=== PATIENT | female | born 1975 | race Caucasian/White ===

== ENCOUNTER → 2023-11-14 10:13 | Outpatient (REF) | payer BC, SELFPAY | LOC: HWRCS 10:13 | PROVIDERS: ATTENDING PHYSICIAN Family Medicine | DX: R00.2 Palpitations (principal) | CPT/HCPCS: 93306 ==

== ENCOUNTER → 2023-12-03 06:32 | Day surgery (SDC) | payer BC, SELFPAY | LOC: GI 06:32 | PROVIDERS: ATTENDING PHYSICIAN Internal Medicine; FAMILY PHYSICIAN Family Medicine | DX: K64.9 Unspecified hemorrhoids (principal); K51.20 Ulcerative (chronic) proctitis without complications | CPT/HCPCS: 45380; 88305 ==

== ENCOUNTER 2023-12-04 09:10 | Observation (INO) | payer BC, SELFPAY ==
[2023-12-04] VITALS (10 sets, daily range): BP systolic 103–125; BP diastolic 57–76; BMI 23.3
--- NOTE | 2023-12-04 06:47 | ED.GENMED ---
History of Present Illness
General
Chief Complaint: Rectal Bleeding
Source: patient and spouse
Exam Limitations: none
Time Seen by Provider: 12/04/23 06:32
History of Present Illness
History of Present Illness:
48-year-old female history of ulcerative colitis presents with severe GI bleeding status post colonoscopy yesterday. Has had bleeding issues and UC flare since July. Significant inflammation by colonoscopy. Multiple biopsies done. Had some
bleeding last evening that was relatively mild. Severe bleeding x 3 this morning. No significant abdominal pain no fever or chills.
Past History
Past History
ED Past Medical History: Other (ulcerative colitis, Mesalamine suppositories)
ED Past Surgical History: (X2) and Other (Sinus surgery)
Social History
Tobacco: Former smoker
Alcohol: Occasional
Drug: None
Personal:
Living: with family
Employment: Employed (self employed)
Review of Systems
Review of Systems
All Other Systems: Not applicable
Constitutional: Denies fever
ABD/GI: Denies abdominal pain
Phy Exam
Physical Exam
Physical Exam:
GENERAL: Alert and oriented in no apparent distress, but very anxious
EYE: Orbits normal.
NECK: Supple
CARDIAC: Regular rate and rhythm without any obvious murmurs.
LUNGS: Clear breath sounds,normal
ABDOMEN: Soft, bowel sounds present. No distention. Mild suprapubic tenderness. No rebound or guarding no mass or hernia
NEUROLOGICAL: Alert and oriented , grossly non-focal
SKIN: Warm and dry, no rash or lesion, no discoloration, skin intact.
MUSCULOSKELETAL: No edema,no deformity.Good color
PSYCH: Normal and appropriate interaction.
Course
Orders/Labs/Results
Orders:
Orders
12/04/23 06:32
Cardiac Monitoring- Treatment ONCE
IV Insert/Care/Rem.- Treatment PRN
12/04/23 06:41
Type+Screen Urgent
Basic Metabolic Panel Urgent
Beta Hcg Serum Qualitative Screen [HCG, Serum Qualitative Screen] Urgent
Complete Blood Count/With Diff Urgent
12/04/23 06:43
CT Abd/pelvis Angio W/wo Iv Urgent
Comment:
Reason For Exam: Severe lower GI bleed. Colonoscopy yesterday.
Test Result ONCE
12/04/23 07:45
GASTROINTESTINAL CONSULT Routine
Consulting Provider: Fina Jaime
Was physician already notified: Yes
Reason for consult: GIB
12/04/23 08:00
Mesalamine Delayed Release [Asacol, Delzicol Dr] 1,200 mg PO QID
12/04/23 08:05
Admit/Transfer Patient As Directed
Co-Sign Provider:
Level of Care: Observation services
Assign to:: Medical/Surgical
Physician / Group: hospitalist
Diagnosis: GIB
PRN Pain Medication Management As Directed
May give lesser potent ordered pain med per pt: Yes
preference::
Protocol:: Medication orders for pain may be administered in a
manner that supports deferring to patient preference
when the pt is:
- Requesting an ordered lesser potent pain medication.
Least to most potent pain medications are defined
as: acetaminophen < NSAID < tramadol < opioids
(morphine, oxycodone, hydromorphone).
- Requesting a lesser dose of the same medication IF
ORDERED.
- Requesting a less intrusive route of administration
if both routes are prescribed by the provider (PO <
IV).
12/04/23 08:06
Code Status As Directed
Resuscitation Status: Full Code
12/04/23 22:00
Hydrocortisone Enema [Colocort/Cortenema] 60 ml RECTAL HS
Abnormal Lab Results
12/04/23
06:41
Hct 36.4 L %
(37.0-47.0)
12/04/23 06:41
12/04/23 06:41
Vital Signs
Initial and Last Documented VS:
Initial Vital Signs
Temp Pulse Resp BP Pulse Ox
98.2 F 72 20 116/58 100
12/04/23 06:25 12/04/23 06:25 12/04/23 06:25 12/04/23 06:25 12/04/23 06:25
Last Documented Vital Signs
Temp Pulse Resp BP Pulse Ox
98.2 F 76 12 103/59 98
12/04/23 06:25 12/04/23 08:31 12/04/23 08:31 12/04/23 07:30 12/04/23 07:45
MDM/Problems Addressed
Differential Diagnosis Includes:
Patient describing significant lower GI bleed despite stable vital signs and good perfusion. Typed and screened. Consent signed. CT angio. GI contacted immediately.
*Radiology
Radiology exam reviewed: radiology read reviewed (Proctitis. Internal hemorrhoids. No active severe bleeding)
*Pulse Oximetry
Patient hypoxic: no
*Stewardess Supervisor Interpretation
Rate: normal
Interpretation: normal
Heart Rate: 70
Rhythm: sinus
*Critical Care Note
Total Time (30-74mins, 75-104mins- exclusive of procedures): 20
Data Reviewed
Review of Other/Old Records Reveals: Labs, Records and Operative Reports
Update Note
Update Note:
0730... Patient has remained stable. Bleeding has improved. Vital signs stable. Hemoglobin stable. Await CT angiography. GI and hospitalist notified
ED Attending Note
-
Portions of this chart may have been created with voice recognition software.� Occasional wrong word or��sound alike� substitutions may have occurred due to the inherent limitations of voice recognition software.
Discharge Plan
Departure
Patient Disposition: Admit
Date of Disposition: 12/04/23
Time of Disposition: 07:25
Presentation/result/management discussed w/ accepting MD/DO: Gastroenterology
Discharge Problem:
Lower GI bleed, Ulcerative colitis
Prescriptions:
No Action
mesalamine 1.2 gram Tablet,Delayed Release (Dr/Ec)
4.8 g PO DAILY
hydrocortisone 100 mg/60 mL Enema
100 mg MS BID
Patient Comments:
12/04/23: to take twice daily for 1 week, then nightly for 4 weeks
Interventions
Interventions:
*Risk Screen - Suicide Last Done: 12/04/23 06:40
*Neglect/Abuse Screening Last Done: 12/04/23 06:40
ED- Fall Risk Assessment Last Done: 12/04/23 06:40
*ED COVID-19 Vaccine History Last Done: 12/04/23 06:40
XL-Rqkfiq-Vsrwnnzjzy Assessment Last Done: 12/04/23 06:40
ED- Cardiac Assessment Last Done: 12/04/23 06:40
ED- Pulmonary Assessment Last Done: 12/04/23 06:40
Discharge Date and Time
Print Language: PORTUGUESE
[2023-12-04 06:59] LABS: % Basophils 0.6 % (0-2); % Eosinophils 2.4 % (0-6); % Immature Granulocytes 0.2 % (0-0.5); % Lymphocytes 36.8 % (20.5-51.1); Absolute Eosinophils 0.1 10^3/uL (0-0.7); Absolute Monocytes 0.5 10^3/uL (0.1-0.6); Absolute Neutrophils 2.8 10^3/uL (1.4-6.5); Hematocrit 36.4 % (37.0-47.0); Hemoglobin 12.6 g/dL (12.0-16.0); Mean Corp Hgb Conc. 34.6 g/dL (33.0-37.0); Mean Corpuscular Hgb 29.7 pg (27.0-31.0); Mean Corpuscular Volume 85.8 fL (81.0-99.0); Mean Platelet Volume 9.5 fL (7.4-10.4); Nucleated Red Blood Cells % 0 %; Platelet Count 214 10^3/uL (130-400); Red Blood Cell Count 4.24 10^6/uL (4.20-5.40); Red Cell Dist. Width 13.2 % (11.5-14.5); White Blood Cell Count 5.4 10^3/uL (4.8-10.8)
[2023-12-04 07:23] LABS: HCG, Serum Qualitative Screen Negative
[2023-12-04 07:24] LABS: Blood Urea Nitrogen 11 mg/dl (7-17); Calcium 9.7 mg/dl (8.4-10.2); Carbon Dioxide 22 mmol/L (22-30); Chloride 107 mmol/L (98-107); Estimated Creatinine Clearance 79 ml/min; Glucose 98 mg/dl (70-99); Sodium 136 mmol/L (135-145); eGFR > 60.00
--- NOTE | 2023-12-04 08:08 | HPS.HSE ---
Family Physician
-
Family Physician:
Chief Complaint
-
GIB
History of Present Illness
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 Hemodynamically stable. Had 3 bloody BM in AM at home, but bleeding subsided in the hospital.
Abdomen non-tender and not distended. No significant drop in Hbg noted on admission compared with previous baseline between -
Medical History
Past Medical History
Past Medical History: Reports Other
Additional Past Medical History:
See HPI
Past Surgical History: Reports None
Social History
Tobacco: Non-smoker
Alcohol: Occasional
Drug: None
Family History
Family History: Not pertinent
Allergies / Home Medications
Allergies reflects when Allergies were last updated in [employer].
Home Medications with original date entered in [employer]
Allergy/Medication List:
Allergies
Allergy/AdvReac Type Severity Reaction Status Date / Time
Penicillins Allergy Unknown Verified 12/04/23 06:25
Mesalamine 1.2g QID
Hydrocortisone enema nightly
Review of Systems
-
History Source: Patient
A 12 point ROS was completed and negative except as noted: Yes
Physical Exam
Vital Signs
Vital Signs
Temp Pulse Resp BP Pulse Ox
98.2 F 66 14 107/59 100
12/04/23 06:25 12/04/23 07:17 12/04/23 07:17 12/04/23 07:00 12/04/23 07:17
Physical Exam
General: No Apparent Distress
HEENT: NormoCephalic
Respiratory: Clear; No Wheezes, Rales or Rhonchi
Cardiac: S1/S2 and Regular Rhythm
GI: Soft, Non Tender, Non Distended and Normal Bowel Sounds
Musculoskeletal: Clubbing, No Clubbing, No Cyanosis and No Edema
Skin: Warm
Neuro: Awake, Alert, Oriented and AO x 3
Psych: Calm
Laboratory Results
-
12/04/23 06:41
12/04/23 06:41
Data Reviewed
-
Lab Data: Labs Reviewed by me
Impression/Plan
-
A/P:
#Acute blood loss anemia 2/2 GIB 2/2 UC
two large bore IV, serial H&H, transfuse if significant drop >2.0 or <8.0, consent signed in ED
NPO pending GI, start d5NS
Cont Mesalamine PO and Hydrocortisone enema
avoid anticoagulation and antiplatelets, avoid NSAIDs
CT abd pending, however with benign abdomen highly unlikely perforation
DVT ppx SCDs
FUll code
I have spent at least 57min admitting the patient
--- NOTE | 2023-12-04 09:14 | CON.GI ---
Addendum entered and electronically signed by Fina Jaime MD 12/04/23 16:38:
I saw and examined the patient.
The ROUTE DELIVERY DRIVER or PA's note was reviewed and I agree with the note.
Comment: 48-year-old female with history of ulcerative proctitis presenting with significant bleeding from the rectum this a.m. She was diagnosed with ulcerative proctitis back in 2019, was on Canasa suppositories which she was taking couple of
times a week, back in June, she started having some urgency with bowel movements with mucus and blood in diarrhea, symptoms got worse in October, stool studies negative for C. difficile but elevated fecal calprotectin. She had colonoscopy performed
12/03/2023, Painting grade 2 inflammation found from anus to rectum and also in the cecum, rest of the colon appeared normal. Biopsies were taken with a large biopsy forcep and she did well after the procedure. She was asked to start Lialda 4 tablets a
day and cortenemas twice a day. This morning, she woke up and had 2 large episodes of rectal bleeding, significant amounts that brought her to the emergency room. Last episode was about 8 AM. Hemoglobin when she came to the emergency room was
about 12.6. CT angiogram did not show any evidence of active bleeding.
She also reports some discomfort in the abdomen especially with bowel movements. No dizziness or lightheadedness. Occasional NSAID use but not on a regular basis.
-History of ulcerative proctitis and inflammation in the cecum, status post colonoscopy 11/02/2023, now coming in with rectal bleeding. Hemodynamically stable.
CT angiogram negative
Likely bleeding related to biopsies taken during colonoscopy.
No further bleeding since admission and hemoglobin seems to be stable.
Tolerating clear liquid diet well. Okay to advance to low residue diet.
Monitor H&H every 6 hours for now.
Cortenema twice a day starting tonight and mesalamine 4.8 g a day which can be taken starting tomorrow as outpatient
Follow-up on the biopsies and follow-up with Dr. Bhatia as outpatient
Original Note:
Consultation
-
Date/Time Consultation Requested: 12/04/23744
Date/Time Consultation Performed: 12/04/23 08
Requesting Provider: Dr. Ortez
Performing Provider: Dr. Jaime/SHIVANI Fields
Reason for Consultation: rectal bleeding
Medical History
Chief Complaint / HPI
Chief Complaint: rectal bleeding
History of Present Illness:
48-year-old female with past medical history of ulcerative proctosigmoiditis more distal rectum with history of cecal patch on Canasa suppositories, chronic constipation. Started having increasing UC symptoms since June. This was associated with
diarrhea, blood in stool. In October she had stool that was negative for C. difficile. Fecal calprotectin that was 235, CRP that was 6, sed rate that was 4. Repeat colonoscopy was performed on 12/03/23 that showed hemorrhoids on perianal exam.
Moderately active Painting score 2 proctitis ulcerative colitis, worsened since last exam. This area was biopsied. The sigmoid and ascending colon was normal. This was biopsied. The examined portion of the ileum was normal. The patient was started
on mesalamine 1.2 g 4 times a day as well as Canasa suppositories until able to obtain hydrocortisone enemas. The patient states that after the colonoscopy she felt fine. She ate something. Last evening she went to bed and everything was
uneventful. Last evening she had a small amount of bleeding. She did not think much of it as it was her first episode of anything per rectum since her colonoscopy. This morning she got up and she had 2 large episodes of bright red blood per
rectum that filled the toilet. At this point she proceeded to come to the emergency room. She states that she had no abdominal pain just urgency to have a bowel movement. She did feel somewhat dizzy. She denies any fevers, chills, nausea,
vomiting, melena, dysphagia or odynophagia. No early satiety or unintentional weight loss. She takes no NSAIDs. She stopped taking any supplements.
Past Medical History
Past Medical History: Other (Ulcerative proctosigmoiditis)
Past Surgical History: and Other (Sinus surgery, breast augmentation)
Social History
Tobacco: Non-Smoker
Alcohol: Occasional
Drug: None
Personal:
Living: With Family
Family History
Family History: Other (No family history of gastrointestinal malignancy, colon polyps or IBD)
Allergies / Home Medications
Allergy/AdvReac Type Severity Reaction Status Date / Time
Penicillins Allergy Unknown Verified 12/04/23 06:25
�Medication �Instructions �Recorded
hydrocortisone 100 mg/60 mL enema 100 mg MN BID 12/04/23
mesalamine 1.2 gram tablet,delayed 4.8 g PO DAILY 12/04/23
release
Review of Systems
-
All other systems: A 12 pt ROS was Negative except as stated above in HPI
Vital Signs
Temp Pulse Resp BP Pulse Ox
98.2 F 76 12 103/59 98
12/04/23 06:25 12/04/23 08:31 12/04/23 08:31 12/04/23 07:30 12/04/23 07:45
Physical Exam
Exam
General: No Apparent Distress
HEENT: Anicteric
Respiratory: Clear
Cardiac: Regular Rhythm
GI: Soft, Non Tender, Non Distended and Normal Bowel Sounds
Musculoskeletal: No Edema
Skin: Warm and Dry
Neuro: AO x 3
Psych: Calm
Results
WBC 5.4 10^3/uL (4.8-10.8) 12/04/23 06:41
Hgb 12.6 g/dL (12.0-16.0) 12/04/23 06:41
Hct 36.4 % (37.0-47.0) L 12/04/23 06:41
MCV 85.8 fL (81.0-99.0) 12/04/23 06:41
Plt Count 214 10^3/uL (130-400) 12/04/23 06:41
Absolute Neuts (auto) 2.8 10^3/uL (1.4-6.5) 12/04/23 06:41
Sodium 136 mmol/L (135-145) 12/04/23 06:41
Potassium 4.0 mmol/L (3.5-5.1) 12/04/23 06:41
Chloride 107 mmol/L (98-107) 12/04/23 06:41
Carbon Dioxide 22 mmol/L (22-30) 12/04/23 06:41
BUN 11 mg/dl (7-17) 12/04/23 06:41
Creatinine 0.7 mg/dL (0.6-1.0) 12/04/23 06:41
Calcium 9.7 mg/dl (8.4-10.2) 12/04/23 06:41
Diagnostic Image Results:
CT Abd/Pelvis Angio with/without: IMPRESSION:
1. No acute gastrointestinal hemorrhage is identified.
2. Rectal inflammatory changes as above with some form of proctitis. In addition to this, numerous prominent small vessels enhancing along the distal rectum and anus suggesting presence of internal hemorrhoids. No signs of abscess formation. No
other inflammatory reaction of the bowel is identified.
3. Incidental lipoma within left adductor musculature.
Electronically signed by Shaun Whitman DO, 12/04/2023 8:55 AM
Prior GI Procedures:
--12/03/23 COLO ([facility]) - Hemorrhoids found on perianal exam.
- Moderately active (Painting Score 2) proctitis
ulcerative colitis, worsened since the last
examination. Biopsied.
- The sigmoid to ascending colon is normal. Biopsied.
- The examined portion of the ileum was normal.
----10/2023 Stool neg Cdiff, Fecal calpro 235, ESR 4, CRP 6
----08/28/2022: C. difficile negative, CRP less than 1, fecal calprotectin 81, CBC normal, sed rate 8�������
---- 08/2021 Colonoscopy: History of ulcerative proctitis with a cecal patch in clinical remission with a normal fecal calprotectin on Canasa: Good prep to the cecum. External hemorrhoids, very mild inflammation in the distal rectum much improved,
otherwise endoscopically normal. Biopsies in the cecum show quiescent colitis, ascending transverse are normal. Sigmoid proximal rectum show quiescent colitis. Distal rectum shows mild chronic active proctocolitis.�������OVERALL, minimal activity in
the rectum otherwise in remission. Continue nightly Canasa if possible, but at least 3 times a week�������
----COLON;09/27/20; History of ulcerative proctitis on Canasa. Good prep to the terminal ileum.Overall, moderately active, PAINTING 2 distal ulcerative proctitis with a cecal patch.������� Continue Canasa and start 4 tabs of mesalamine daily.��External
hemorrhoids,- PAINTING 2 - distal rectum, bx: moderate to severe chronic active colitis. 5 mm sigmoid hyperplastic polyp,�������- Endoscopically normal sigmoid to ascending. Biopsies proximal rectum to transverse colon showed mild edema.�- ascending
biopsies showed mild chronic active colitis, cecal biopsies endoscopically PAINTING 2 with a cecal patch with mild to moderate chronic active colitis.�- Normal terminal ileum.����
----negative celiac panel�������
----April 2019;CT abdomen and pelvis with by mouth and IV contrast revealed mild hepatomegaly, and large amount of stool throughout the colon�������
---- 01/2020 flexible sigmoidoscopy for change in bowel habits and hemorrhage. Excellent prep to the descending colon. External hemorrhoids, moderate inflammation in the proximal mid and distal rectum. Biopsies consistent with moderate chronic
active colitis, consistent with inflammatory bowel disease. Endoscopically normal sigmoid with no chronic changes in the sigmoid. Consistent with ulcerative proctitis. stool studies were negative for C. difficile, culture. Many WBCs.�������
-----November 2018 colonoscopy. Rectal pressure. Excellent prep to the terminal ileum. Increased rectal tone and spasm. No lesions. External hemorrhoids otherwise normal to the terminal ileum. Prescribed nitroglycerin ointment for spasm. repeat
colonoscopy in 7-10 years.
Assessment / Plan
-
48-year-old female with past medical history of ulcerative proctosigmoiditis more distal rectum with history of cecal patch on Canasa suppositories, chronic constipation. Started having increasing UC symptoms since June. This was associated with
diarrhea, blood in stool. Patient had colonoscopy yesterday that showed hemorrhoids on perianal exam. Moderately active Painting score 2 proctitis ulcerative colitis, worsened since last exam. This area was biopsied. The sigmoid and ascending colon
was normal. This was biopsied. The examined portion of the ileum was normal. The patient was started on mesalamine 1.2 g 4 times a day as well as Canasa suppositories until able to obtain hydrocortisone enemas. She developed initial episode of
bleeding last evening that was a small amount. This morning 2 large episodes of bright red blood per rectum. Since that time she had 2 episodes of brown stool with some blood coating. No abdominal pain. Negative CTA. WBC 5.4, hemoglobin 12.6,
hematocrit 36.4, platelets 214. Vital signs are stable.
Impression:
Rectal bleeding-> likely post biopsy related versus hemorrhoidal versus ulcerative colitis
Plan:
-Trend hemoglobin
-Ok to start clear liquid diet, no red liquids. If continues to improve advance to low residue diet.
-Continue Mesalamine and hydrocortisone enemas
-Further recommendations to follow.
Data Reviewed
-
CT Scan: Report Reviewed by me
Old Records: Reviewed
-
-
Thank you for consultation and allowing me to participate in the patient's care. Please call the pulmonologist/intensivist GI physician during the after hours with any questions or concerns.
[2023-12-04] MEDS: D5/0.9% SODIUM CHLORIDE 1000 IV ×2 (09:43→20:46)
[2023-12-04 11:16] LABS: Hematocrit 37.4 % (37.0-47.0); Hemoglobin 12.8 g/dL (12.0-16.0)
[2023-12-04] MEDS: TYLENOL 650 MG PO (11:29)
[2023-12-04] MEDS: ASACOL, DELZICOL DR 1200 MG PO ×3 (12:11→20:44)
[2023-12-04 16:02] LABS: Hematocrit 34.3 % (37.0-47.0); Hemoglobin 11.9 g/dL (12.0-16.0)
--- NOTE | 2023-12-04 17:24 | W.PN.UPDATE ---
Update Note
Progress Note Update
i called and spoke to Sheela, my patient.
Her bleeding was likely excessive due an oozing biopsy. She has been having some bloody stools with her active UC, but this was more and likely from the biopsies.
Her CTA was negative and her hgb roughly same and stable as her baseline.
She is now back to her baseline bowel movements which are about the same amount of blood she had as an outpatient prior to her colonoscopy. She is tolerating a diet but is somewhat gassy. She will get her Anthony enema tonight in the morning. If her
hemoglobin stays stable and she has no significant overt bleeding she can go home. She has close follow-up with me in about 2 weeks
[2023-12-04] MEDS: COLOCORT/CORTENEMA 60 ML RECTAL (20:44)
[2023-12-04 22:14] LABS: Hematocrit 33.2 % (37.0-47.0); Hemoglobin 11.6 g/dL (12.0-16.0)
[2023-12-05 05:36] LABS: Hematocrit 36.6 % (37.0-47.0); Hemoglobin 12.7 g/dL (12.0-16.0)
[2023-12-05] MEDS: ASACOL, DELZICOL DR 1200 MG PO (07:57)
[2023-12-05] MEDS: COLOCORT/CORTENEMA 60 ML RECTAL (08:03)
[2023-12-05 08:05] VITALS: BP 109/62
--- NOTE | 2023-12-05 09:46 | W.PN.HOSP.TC ---
Today's Communication/Plan
-
dc
Assessment / Plan
Assessment / Plan
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 Hemodynamically stable. Had 3 bloody BM in AM at home, but bleeding subsided in the hospital.
Abdomen non-tender and not distended. No significant drop in Hbg noted on admission compared with previous baseline between 12-13. No additional episodes of explosive bleeding, however patient continued to have her usual clots in the stool, that
are similar to her chronic presentation 2/2 IBD. Tolerated food well, abd remained soft, non-tender, with some mild dyscomfort in lower abd after the meals. GI will follow in the office in 2 weeks and was agreeable with d/c as bleeding returned to
the levels that patient had chronically. Patient to cont her mesalamin oral and steroids enemas. Medically stable for d/c
A/P:
#Acute blood loss anemia 2/2 GIB 2/2 UC
two large bore IV, serial H&H, transfuse if significant drop >2.0 or <8.0, consent signed in ED
NPO pending GI, start d5NS
Cont Mesalamine PO and Hydrocortisone enema
avoid anticoagulation and antiplatelets, avoid NSAIDs
CT abd showed inflammatory changes mostly localized to perirectal area 2/2 IBD
#kidney cyst
#Ovarian cyst
#L abductor lipoma
no further mgmt advised
DVT ppx SCDs
FUll code
I have spent at least 36min reviewing chart, test results, communication with consultants and direct patient care
Anticipated Discharge: Today
Subjective/Interval History
-
Date of Service: December 05, 2023
Objective Data
-
Labs:
Laboratory Results
12/04/23 12/05/23 12/05/23
22:06 05:12 09:59
Hgb 11.6 L 12.7 Cancelled
Hct 33.2 L 36.6 L Cancelled
12/05/23
15:59
Hgb Cancelled
Hct Cancelled
Vital Signs:
Vital Signs
Temp Pulse Resp BP Pulse Ox
98.0 F 76 16 109/62 98
12/05/23 08:05 12/05/23 08:05 12/05/23 08:05 12/05/23 08:05 12/05/23 08:05
I&O
12/04/23 12/05/23 12/06/23
06:59 06:59 06:59
Intake Total 1080 / 1080
Balance 1080 / 1080
Review of Systems
-
History Source: Patient
All other systems: Reviewed and negative
Physical Exam
-
General: No Apparent Distress
HEENT: Normocephalic, Atraumatic and Moist Mucous Membranes
Respiratory: Clear to Auscultation
Cardiac: Regular Rhythm
GI: Soft, Nontender and Nondistended
Genito-urinary: No Costovertebral Tender
Musculoskeletal: No Clubbing, No Cyanosis and No Edema
Skin: Warm
Neuro: Awake, Alert, Oriented and AO x 3
Psych: Calm
--- NOTE | 2023-12-05 09:52 | W.DCSUMMARY ---
Discharge Summary
Discharge Data
Date of Admission: 12/04/23
Date of Discharge: 12/05/23
-
Pending Results: No
Hospital Course
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 Hemodynamically stable. Had 3 bloody BM in AM at home, but bleeding subsided in the hospital.
Abdomen non-tender and not distended. No significant drop in Hbg noted on admission compared with previous baseline between 12-13. No additional episodes of explosive bleeding, however patient continued to have her usual clots in the stool, that
are similar to her chronic presentation 2/2 IBD. Tolerated food well, abd remained soft, non-tender, with some mild discomfort in lower abd after the meals. GI will follow in the office in 2 weeks and was agreeable with d/c as bleeding returned to
the levels that patient had chronically. Patient to cont her mesalamin oral and steroids enemas. Medically stable for d/c.
I have spent at least 37min preparing discharge
Patient was managed for:
#Acute blood loss anemia 2/2 GIB 2/2 UC
#kidney cyst
#Ovarian cyst
#L abductor lipoma
Discharge Plan
-
Patient Disposition: Home (Routine Discharge)
Discharge Diagnosis/Procedures: GIB
Condition: Fair
Diet: Low Residue
Activity: As tolerated
Driving Restrictions: As prior to admission
Bathing Restrictions: None
Referrals:
Brennen Jaquez DO [Family Provider] -
Myla Bhatia DO [Active] - in two weeks
Prescriptions:
Continued
mesalamine 1.2 gram Tablet,Delayed Release (Dr/Ec)
4.8 g PO DAILY
hydrocortisone 100 mg/60 mL Enema
100 mg DC BID
Patient Comments:
12/04/23: to take twice daily for 1 week, then nightly for 4 weeks
Discharge Orders:
Discharge Patient (As Directed); Ordered 12/05/23
Ordered By: Samuel Ortez
Discharge Date and Time
Print Language: BULGARIAN
--- NOTE | 2023-12-05 15:59 | CM ---
Alert awake oriented patient who lives with her Lencho who lives in a2 story home with 0 steps to enter and 15 steps to bed/bath room .
She is independent in driving and in all activities of daily living.Offered VN she declined.Explained Observation letter . She delcined to sign letter.
No adaptive devices
Never had VN/SNF
[facility]arm[facility]
PCP Dr Jaquez
PLAN Home declined VN
== END 2023-12-05 10:32 | disposition home or self-care (01) ==
LOC: 3 WEST ACU 09:10
PROVIDERS: ADMITTING PHYSICIAN Internal Medicine; CONSULT PHYSICIAN Internal Medicine Gastroenterology; EMERGENCY PHYSICIAN Emergency Medicine; FAMILY PHYSICIAN Family Medicine
DX: K91.840 Postprocedural hemorrhage of a digestive system organ or structure following a digestive system procedure (principal); Y84.8 Other medical procedures as the cause of abnormal reaction of the patient, or of later complication, without mention of misadventure at the time of the procedure; Y73.0 Diagnostic and monitoring gastroenterology and urology devices associated with adverse incidents; Y92.9 Unspecified place or not applicable; K51.211 Ulcerative (chronic) proctitis with rectal bleeding; K62.5 Hemorrhage of anus and rectum; D62 Acute posthemorrhagic anemia; R42 Dizziness and giddiness; K64.9 Unspecified hemorrhoids; N28.1 Cyst of kidney, acquired; N83.209 Unspecified ovarian cyst, unspecified side; D17.9 Benign lipomatous neoplasm, unspecified; Z98.82 Breast implant status; Z87.891 Personal history of nicotine dependence; Z88.0 Allergy status to penicillin
CPT/HCPCS: 74174; 80048; 84703; 85014; 85018; 85025; 86850; 86900; 86901; 99285; G0378; Q9967

== ENCOUNTER → 2024-02-23 13:10 | Outpatient (REF) | payer BC, SELFPAY | LOC: WDC 13:10 | PROVIDERS: ATTENDING PHYSICIAN Family Medicine | DX: Z12.31 Encounter for screening mammogram for malignant neoplasm of breast (principal) | CPT/HCPCS: 77063; 77067 ==

== ENCOUNTER → 2024-03-12 13:10 | Outpatient (REF) | payer BC, SELFPAY | LOC: RAD 13:10 | PROVIDERS: ATTENDING PHYSICIAN Family Medicine; OTHER PHYSICIAN Internal Medicine | DX: R10.9 Unspecified abdominal pain (principal); K51.90 Ulcerative colitis, unspecified, without complications | CPT/HCPCS: 74177; Q9967 ==